=== PATIENT | female | born 1970 | race Hispanic/Latino ===

== ENCOUNTER 2019-09-07 00:53 | Inpatient (IN) | payer OTHER ==
[2019-09-07 02:13] LABS: Bilirubin Negative (Negative); Blood, Urine Negative (Negative); Clarity Clear (Clear); Glucose, Urine (Dipstick) Normal (Negative); Leukocyte 75 Leu/uL (Negative); Nitrite Negative (Negative); Protein, Urine (Dipstick) 30 mg/dL (Neg-Trace); Squamous Epithelial 21-50 HPF (0-3); Urobilinogen Normal mg/dL (Less than 2)
[2019-09-07 02:15] LABS: Bacteria/HPF 1+ HPF (None Seen)
[2019-09-07 02:18] LABS: RBC/HPF 0-3 HPF (0-3)
[2019-09-07] MEDS ORDERED: Acetaminophen 650 MG Suppository PR PRN (03:14)
[2019-09-07] MEDS ORDERED: Acetaminophen 325 MG TAB PO PRN (03:14)
[2019-09-07] MEDS ORDERED: cefTRIAXone\\ROCEPHIN 1 GM in Sodium Chloride 0.9% 100 ML IVPB SCH (03:15)
[2019-09-07 03:26] VITALS: BMI 29.5
[2019-09-07] MEDS: Sodium Chloride 0.9% 1,000 ML IV SCH ×4 (03:38→19:53)
--- NOTE | 2019-09-07 03:52 | PDOC.HHP ---
Hospitalist HPI - History of Present Illness abd pain dysuria History of Present Illness: Case of an 49y/o fem with pmhx of 1 kidney and migrane who comes to hospital due to abd pain. patient refers she was on her usual state on health until last month when she began with similar symptoms for which she was treated with abx which she can no recall. patient states initially symptoms improve but then started to worsen again. patient states she has been having abd pain dysuria intermittent fever nause and vomiting, also refers some sob and coughing Hospitalist ROS - Review of Systems All other systems reviewed; all pertinent +/- noted in HPI/Subj - Medication Medications: Active Medications Generic Name Dose Route Start Last Admin Trade Name Freq PRN Reason Stop Dose Admin Ceftriaxone Sodium 1 gm/ 100 mls @ 200 mls/hr 09/07/19 03:15 09/07/19 03:38 Sodium Chloride IVPB 09/07/19 04:45 100 mls NOW ELEAZAR Administration Sodium Chloride 1,000 mls @ 100 mls/hr 09/07/19 03:30 09/07/19 03:38 Normal Saline 0.9% IV 1,000 mls .Q10H ELEAZAR Administration Hospitalist History - 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 Medical History 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 - Past Surgical History Past Surgical History: reports: no pertinent history - Family History Family History: reports: cancer, cardiac disorder, diabetes mellitus, hypertension - Social History Smoking Status: Never smoker Alcohol: reports: None Drugs: reports: none Living Situation: Other - Exam General Appearance: NAD, awake alert Eye: PERRL, anicteric sclera ENT: normocephalic atraumatic, no oropharyngeal lesions Neck: supple, symmetric, no JVD, no thyromegaly Heart: RRR, no murmur, no gallops, no rubs Respiratory: CTAB, no wheezes, no rales, no ronchi Gastrointestinal: soft, non-tender, non-distended, normal bowel sounds, tender to palpation Extremities: no cyanosis, no edema Skin: normal turgor, no lesions, no rashes Neurological: cranial nerve grossly intact, normal sensation to touch, no weakness, no focal deficits Musculoskeletal: normal tone, normal strength, no muscle wasting Psychiatric: normal affect, normal behavior, A&O x 3 Hospitalist Results - Labs Lab results: Urine Ketones 150 mg/dL (Negative) A 09/07/19 01:58 Urine Blood Negative (Negative) 09/07/19 01:58 Urine Nitrite Negative (Negative) 09/07/19 01:58 Ur Leukocyte Esterase 75 Amy/uL (Negative) A 09/07/19 01:58 Urine RBC 0-3 HPF (0-3) 09/07/19 01:58 Urine WBC 11-20 HPF (0-3) A 09/07/19 01:58 Ur Squamous Epith Cells 21-50 HPF (0-3) A 09/07/19 01:58 Urine Bacteria 1+ HPF (None Seen) A 09/07/19 01:58 - Radiology Interpretation CT scan - abdomen Status: report reviewed by me (hemangioma on liver non obstructing 1.2cm calculos 1 horseshoe kidney) Chest x-ray Status: report reviewed by me (no acute pathology) Hospitalist H&P A/P - Problem (1) Sepsis Code(s): A41.9 - SEPSIS, UNSPECIFIED ORGANISM Status: Acute (2) UTI (urinary tract infection) Status: Acute (3) Horseshoe kidney Code(s): Q63.1 - LOBULATED, FUSED AND HORSESHOE KIDNEY Status: Acute (4) COVID-19 ruled out Code(s): Z03.818 - ENCNTR FOR OBS FOR SUSP EXPSR TO [facility] AGENTS RULED OUT Status: Acute - Plan Plan: sepsis /uti - pt with sepsis, lactate at 3.9 started on sepsis protocol f/u lactate at 0.9. u/a consistent with uti, pts hx of recurrent utis. blood urine cultures were ordered and pt was started on rocephin, f/u cultures and adjust therapy as necessary covid 19 r/o - at the ed pt compliained of some sob and cough, was swap by the ed department. covid precautions were started
[2019-09-07 06:00] LABS: ALT (SGPT) 14 U/L (8-55); AST (SGOT) 17 U/L (5-34); Alkaline Phosphatase 77 U/L (40-110); Anion Gap 15 mmol/L (10-20); BUN (Urea Nitrogen) 6 mg/dL (7.0-18.7); Bilirubin, Total 0.4 mg/dL (0.2-1.2); Calc. Creatinine Clearance 105 mL/min (70-130); Calcium 7.9 mg/dL (7.8-10.44); Carbon Dioxide 15 mmol/L (22-29); Chloride 112 mmol/L (98-107); Estimated GFR-MDRD 80; Globulin 2.4 g/dL (2.4-3.5); Glucose 80 mg/dL (70-105); Magnesium 1.5 mg/dL (1.6-2.6); Protein, Total 5.4 g/dL (6.0-8.3); Sodium 139 mmol/L (136-145)
[2019-09-07 06:09] LABS: Potassium 2.8 mmol/L (3.5-5.1)
[2019-09-07] MEDS ORDERED: Magnesium Sulfate 1 GM, Admixture Fee 1 EACH in Sodium Chloride 0.9% 100 ML IVPB SCH (06:30)
[2019-09-07] MEDS: Ondansetron PF 4 MG/2 ML Vial IVP PRN ×3 (06:41→19:53)
[2019-09-07] MEDS: Potassium Chloride 20 MEQ TAB PO SCH ×2 (06:41→17:44)
[2019-09-07] MEDS: Enoxaparin Sodium 40 MG/0.4 ML SYRINGE SC SCH (08:34)
[2019-09-07 08:40] LABS: Band 3 % (5-11); Eosinophils 1 % (0-10); Lymphocytes 40 % (21-51); Monocytes 8 % (0-10); Neutrophil 48 % (42-75)
[2019-09-07 08:54] LABS: Hemoglobin 13.5 g/dL (12.0-16.0); MDiff Complete? YES; Mean Corpuscular HGB CONC 34.6 g/dL (32.0-36.0); Mean Corpuscular Hemoglobin 32.6 pg (27.0-31.0); Mean Corpuscular Volume 94.2 fL (78.0-98.0); Mean Platelet Volume 9.9 fL (7.4-10.4); Platelet Count 161 thou/uL (130-400); RBC Distribution Width 12.7 % (11.5-14.5); Red Blood Cell (RBC) Count 4.14 mill/uL (4.20-5.40); White Blood Cell (WBC) Count 6.9 thou/uL (4.8-10.8)
[2019-09-07] MEDS: HYDROcodone/Acetaminophen 5/325 mg Tablet PO PRN ×2 (11:45→15:53)
[2019-09-07 14:11] LABS: Anion Gap 16 mmol/L (10-20); BUN (Urea Nitrogen) 5 mg/dL (7.0-18.7); Calc. Creatinine Clearance 121 mL/min (70-130); Calcium 7.8 mg/dL (7.8-10.44); Carbon Dioxide 12 mmol/L (22-29); Chloride 116 mmol/L (98-107); Estimated GFR-MDRD Greater than 90; Glucose 80 mg/dL (70-105); Magnesium 1.9 mg/dL (1.6-2.6); Potassium 3.5 mmol/L (3.5-5.1); Sodium 140 mmol/L (136-145)
--- NOTE | 2019-09-07 15:31 | PDOC.HOSPP ---
- Subjective Encounter Date: 09/07/19 Encounter Time: 01:30 Subjective: The patient states her abdominal pain is about the same. She states she has been having this for about a month as long as dysuria for a month. She says she completed antibiotics for a UTI in [facility] and states that her repeat urine culture was clear at the [facility]. She reports that she has been vomiting dark red blood for the past month. Initially it was a small amount but yesterday it was a coffee cup full. She also reports having black stools . She does not do alcohol or do any drugs She reports having heartburn from all the vomiting, doesn't usually have heartburn. She does not take NSAIDS at home because was told not to She states that she is still feeling dizzy and lightheaded - Objective Vital Signs & Weight: Vital Signs (12 hours) Temp Pulse Resp BP Pulse Ox 09/07/19 11:40 97.7 F 72 16 124/78 99 09/07/19 08:00 98 09/07/19 07:55 97.8 F 64 14 135/72 98 09/07/19 04:00 97 Weight Weight 166 lb 8.948 oz Result Diagrams: 09/07/19 05:29 09/07/19 13:44 Hospitalist ROS - Review of Systems Constitutional: denies: fever, chills - Medication Medications: Active Medications Generic Name Dose Route Start Last Admin Trade Name Freq PRN Reason Stop Dose Admin Hydrocodone Bitart/Acetaminophen 1 tab 09/07/19 03:14 09/07/19 11:45 [place] 5/325 PO 1 tab Q4H PRN Administration Moderate Pain (4-6) Enoxaparin Sodium 40 mg 09/07/19 09:00 09/07/19 08:34 Lovenox SC Not Given 0900 ELEAZAR Sodium Chloride 1,000 mls @ 100 mls/hr 09/07/19 03:30 09/07/19 12:28 Normal Saline 0.9% IV Not Given .Q10H ELEAZAR Ondansetron HCl 4 mg 09/07/19 03:14 09/07/19 14:31 Zofran IVP 4 mg Q6H PRN Administration Nausea/Vomiting Potassium Chloride 40 meq 09/07/19 07:00 09/07/19 06:41 K-Dur PO 09/07/19 20:00 40 meq 0700,1800 ELEAZAR Administration Sodium Chloride 10 ml 09/07/19 09:00 09/07/19 07:39 Flush - Normal Saline IVF 10 ml Q12HR ELEAZAR Administration - Exam General Appearance: NAD, awake alert Eye: PERRL, anicteric sclera ENT: normocephalic atraumatic, no oropharyngeal lesions Neck: supple, no JVD Heart: RRR, no murmur, no gallops, no rubs Respiratory: CTAB, no wheezes, no rales, no ronchi Gastrointestinal: soft, non-tender, non-distended, normal bowel sounds Gastrointestinal - other findings: bilateral CVA tenderness Extremities: no cyanosis, no clubbing, no edema Skin: normal turgor, no lesions, no rashes Neurological: cranial nerve grossly intact, normal sensation to touch, no focal deficits, no new deficit Musculoskeletal: normal tone, normal strength Psychiatric: A&O x 3 Hosp A/P - Plan This is 49 year old male who presented with abdominal pain, vomiting, dysuria, and vomiting blood Abdominal pain Coffee ground emesis? - Hb was 13.5 on admission - will place on protonix drip and repeat CBC. Check FOBT. If positive and CBC downtrending will consider GI consult for endoscopy in the am Lactic acidosis - was 3.9 on admission. Improved to 0.9 with IV fluids Hypokalemia - potassium improved from 2.8 to 3.5 Hypomagnesemia - improved, increased from 1.5 to 1.9 Code status: full code
[2019-09-07] MEDS: Pantoprazole 80 MG in Sodium Chloride 0.9% 100 ML IVPB SCH (15:53)
[2019-09-07 17:21] LABS: Hemoglobin 13.5 g/dL (12.0-16.0); Mean Corpuscular HGB CONC 35.2 g/dL (32.0-36.0); Mean Corpuscular Hemoglobin 33.1 pg (27.0-31.0); Mean Corpuscular Volume 93.9 fL (78.0-98.0); Mean Platelet Volume 9.4 fL (7.4-10.4); Platelet Count 151 thou/uL (130-400); RBC Distribution Width 12.7 % (11.5-14.5); Red Blood Cell (RBC) Count 4.09 mill/uL (4.20-5.40); White Blood Cell (WBC) Count 5.7 thou/uL (4.8-10.8)
[2019-09-08] MEDS: Pantoprazole 80 MG in Sodium Chloride 0.9% 100 ML IVPB SCH ×2 (01:25→08:46)
[2019-09-08] MEDS: HYDROcodone/Acetaminophen 5/325 mg Tablet PO PRN ×3 (01:39→22:44)
[2019-09-08] MEDS: Enoxaparin Sodium 40 MG/0.4 ML SYRINGE SC SCH (08:48)
[2019-09-08] MEDS: Sodium Chloride 0.9% 1,000 ML IV SCH ×2 (08:49→14:45)
[2019-09-08] MEDS: Ondansetron ODT 4 MG TAB PO PRN ×2 (10:45→17:16)
[2019-09-08 10:46] LABS: Hemoglobin 14.7 g/dL (12.0-16.0); Mean Corpuscular HGB CONC 32.2 g/dL (32.0-36.0); Mean Corpuscular Hemoglobin 30.8 pg (27.0-31.0); Mean Corpuscular Volume 95.7 fL (78.0-98.0); Mean Platelet Volume 9.6 fL (7.4-10.4); Platelet Count 161 thou/uL (130-400); RBC Distribution Width 13.3 % (11.5-14.5); Red Blood Cell (RBC) Count 4.78 mill/uL (4.20-5.40); White Blood Cell (WBC) Count 4.9 thou/uL (4.8-10.8)
[2019-09-08 11:06] LABS: Anion Gap 11 mmol/L (10-20); BUN (Urea Nitrogen) 4 mg/dL (7.0-18.7); Calc. Creatinine Clearance 113 mL/min (70-130); Calcium 8.1 mg/dL (7.8-10.44); Carbon Dioxide 16 mmol/L (22-29); Chloride 117 mmol/L (98-107); Estimated GFR-MDRD 86; Glucose 97 mg/dL (70-105); Potassium 3.4 mmol/L (3.5-5.1); Sodium 141 mmol/L (136-145)
[2019-09-08] MEDS ORDERED: Potassium Chloride 20 MEQ TAB PO SCH (11:45)
--- NOTE | 2019-09-08 15:52 | PDOC.HOSPP ---
- Subjective Encounter Date: 09/08/19 Encounter Time: 15:30 Subjective: Patient states she is barely eating solids and just picking at food and eating small pieces The patient continues to report persistent abd pain on both sides. She also reports some nausea and vomited a few times this morning, but no blood. Per guard supervisor, they stated she self induces vomiting at the shelter a few times Patient does not do drugs or smoke marijuana - Objective Vital Signs & Weight: Vital Signs (12 hours) Temp Pulse Resp BP BP Pulse Ox 09/08/19 10:52 97.6 F 92 18 107/74 96 09/08/19 09:00 97.8 F 74 18 107/72 97 09/08/19 04:26 98 F 76 18 122/75 98 Weight Admit Weight 166 lb 8.944 oz Weight 166 lb 8.948 oz I&O: 09/07/19 09/08/19 09/09/19 06:59 06:59 06:59 Intake Total 1540 Output Total 20 Balance 1520 Result Diagrams: 09/08/19 10:22 09/08/19 10:22 Hospitalist ROS - Review of Systems Constitutional: denies: fever, chills - Medication Medications: Active Medications Generic Name Dose Route Start Last Admin Trade Name Freq PRN Reason Stop Dose Admin Hydrocodone Bitart/Acetaminophen 1 tab 09/07/19 03:14 09/07/19 15:53 [place] 5/325 PO 1 tab Q4H PRN Administration Moderate Pain (4-6) Hydrocodone Bitart/Acetaminophen 2 tab 09/07/19 03:14 09/08/19 01:39 [place] 5/325 PO 2 tab Q4H PRN Administration Severe Pain (7-10) Enoxaparin Sodium 40 mg 09/07/19 09:00 09/08/19 08:48 Lovenox SC 40 mg 0900 ELEAZAR Administration Sodium Chloride 1,000 mls @ 100 mls/hr 09/07/19 03:30 09/08/19 14:45 Normal Saline 0.9% IV 1,000 mls .Q10H ELEAZAR Administration Pantoprazole Sodium 80 mg/ 100 mls @ 10 mls/hr 09/07/19 15:30 09/08/19 08:46 Sodium Chloride IVPB 100 mls INF ELEAZAR Administration Ondansetron HCl 4 mg 09/07/19 03:14 09/08/19 10:45 Zofran Odt PO 4 mg Q6H PRN Administration Nausea/Vomiting Ondansetron HCl 4 mg 09/07/19 03:14 09/07/19 19:53 Zofran IVP 4 mg Q6H PRN Administration Nausea/Vomiting Sodium Chloride 10 ml 09/07/19 09:00 09/08/19 08:48 Flush - Normal Saline IVF 10 ml Q12HR ELEAZAR Administration - Exam General Appearance: NAD, awake alert Eye: PERRL, anicteric sclera ENT: normocephalic atraumatic, no oropharyngeal lesions Neck: no JVD Heart: RRR, no murmur, no gallops, no rubs Respiratory: CTAB, no wheezes, no rales, no ronchi Gastrointestinal: soft Gastrointestinal - other findings: RUQ and LUQ tenderness. Hosp A/P - Plan This is 49 year old male who presented with abdominal pain, vomiting, dysuria, and vomiting blood Abdominal pain Persistent vomiting - Hb was 13.5 on admission. Doubt actual GI bleed due to normal CBC. Switch back to IV protonix BID - GI consulted for persistent abd pain, plan for EGD tomorrow Hypokalemia - potassium 3.4, replace with 40 meq today Hypomagnesemia - improved, increased from 1.5 to 1.9 Lactic acidosis - was 3.9 on admission. Improved to 0.9 with IV fluids Code status: full code
[2019-09-08] MEDS ORDERED: Polyethylene Glycol 3350 17 GM Packet PO PRN (15:53)
[2019-09-08] MEDS: Pantoprazole 40 MG VIAL IVP SCH (20:56)
--- NOTE | 2019-09-08 22:04 | CON ---
DATE OF CONSULTATION: 09/08/2019 CHIEF COMPLAINT: Abdominal pain, nausea and vomiting. HISTORY OF PRESENT ILLNESS: Ms. Castro is a 49-year-old woman, who was transferred from the [facility] to the emergency room with abdominal pain and nausea and vomiting. She states that she has had vague aching abdominal pain for the last month that is sometimes in the right upper quadrant, sometimes more in the right lower quadrant or the left lower or left upper quadrant. It tends to be more often located toward the right side of the abdomen. She has had diarrhea a couple weeks ago and then has taken very little oral intake for the last couple of weeks due to ongoing nausea. She has had no bowel movements for the last couple of weeks except for yesterday. She had a watery brown stool. She has had no black stools or red stools. She vomits frequently and states that she vomited multiple times last night, initially with streaks of red blood and yellow emesis and then some red blood with clots after that. She had a CT scan of the abdomen and pelvis that showed a horseshoe kidney and nonobstructing renal stone and hemangioma in the liver that was otherwise unremarkable. PAST MEDICAL HISTORY: Migraine headaches, horseshoe kidney, hypertension. PAST SURGICAL HISTORY: Negative. FAMILY HISTORY: Negative for GI malignancy. SOCIAL HISTORY: No alcohol, tobacco, or drugs. She is currently incarcerated. ALLERGIES: PENICILLIN. OUTPATIENT MEDICATIONS: None. INPATIENT MEDICATIONS: Enoxaparin and pantoprazole. REVIEW OF SYSTEMS: Negative x10 systems reviewed except as stated in the history of present illness. PHYSICAL EXAMINATION: VITAL SIGNS: Temperature 97.6, pulse 92, and blood pressure 107/74. GENERAL: She is in no acute distress. Alert and oriented x3. HEENT: Eyes have no scleral icterus. Oropharynx is clear without lesions. No cervical or supraclavicular lymphadenopathy. LUNGS: Clear to auscultation bilaterally. HEART: Regular rate and rhythm without murmur. ABDOMEN: Soft, nontender, and nondistended. Bowel sounds are present. EXTREMITIES: No lower extremity edema. RECTAL: Reveals brown stool in the rectal vault. LABORATORY DATA: White blood cell count 4.9, hemoglobin 14.7, platelets 161, creatinine 0.72, bilirubin 0.4, AST 17, ALT 14, alkaline phosphatase 77, albumin 3.0, and lipase 20. IMPRESSION: 1. Hematemesis. This is most consistent by description with a Mehnaz-Hardin tear. 2. Nausea and vomiting and generalized right-sided abdominal pain for the last month. CT scan was negative. We will evaluate further with upper endoscopy to rule out peptic ulcer disease or neoplastic process. If endoscopy is negative, then given the right-sided pain and reported weight loss of 11 pounds and inability to advance her diet over the last month, consideration can be given to follow with colonoscopy. 3. It is noted that her COVID-19 PCR is negative on 09/06/2019. Job ID: [id number]
[2019-09-08] MEDS: Ondansetron PF 4 MG/2 ML Vial IVP PRN (22:44)
[2019-09-09] MEDS: Ondansetron PF 4 MG/2 ML Vial IVP PRN (06:11)
[2019-09-09 06:59] LABS: Hemoglobin 13.3 g/dL (12.0-16.0); Mean Corpuscular HGB CONC 32.9 g/dL (32.0-36.0); Mean Corpuscular Hemoglobin 31.2 pg (27.0-31.0); Mean Corpuscular Volume 94.7 fL (78.0-98.0); Mean Platelet Volume 9.1 fL (7.4-10.4); Platelet Count 169 thou/uL (130-400); Red Blood Cell (RBC) Count 4.28 mill/uL (4.20-5.40); White Blood Cell (WBC) Count 4.5 thou/uL (4.8-10.8)
[2019-09-09 07:13] LABS: Anion Gap 11 mmol/L (10-20); BUN (Urea Nitrogen) Less than 4 mg/dL (7.0-18.7); Calc. Creatinine Clearance 108 mL/min (70-130); Calcium 8.2 mg/dL (7.8-10.44); Carbon Dioxide 20 mmol/L (22-29); Chloride 112 mmol/L (98-107); Estimated GFR-MDRD 82; Glucose 83 mg/dL (70-105); Potassium 3.3 mmol/L (3.5-5.1); Sodium 140 mmol/L (136-145)
[2019-09-09] MEDS: Pantoprazole 40 MG VIAL IVP SCH ×2 (09:26→20:37)
[2019-09-09] MEDS ORDERED: PROPOFOL 200 MG/20 ML VIAL ONE (11:43)
--- NOTE | 2019-09-09 13:28 | OP ---
DATE OF PROCEDURE: 09/09/2019 ASSISTANCE SURGEON: None. PROCEDURE PERFORMED: Esophagogastroduodenoscopy with biopsies. INDICATIONS FOR PROCEDURE: 1. Hematemesis. 2. Nausea and vomiting. 3. Generalized abdominal pain. MEDICATIONS: See Anesthesia record. FINDINGS: After discussion of the risks, benefits, and alternatives of the procedure, informed consent was obtained and witnessed. Pre-endoscopic cardiopulmonary examination was satisfactory. Time-out was performed before sedation was achieved. Sedation was achieved with Anesthesia assistance in the endoscopy unit. A Pentax adult upper endoscope was placed into the oropharynx and passed through the cricopharyngeus under direct visualization. The proximal and mid esophageal mucosa appeared normal. In the distal esophagus just above the GE junction, there was LA grade A reflux esophagitis. The endoscope was advanced beyond the GE junction. There was no evidence of any Mehnaz-Hardin tear. The endoscope was advanced into the stomach. Forward and retroflexed views of the entire gastric mucosa were obtained. There was no evidence of any old blood or active bleeding in the stomach. The mucosa of the gastric fundus and proximal body appeared normal. In the gastric antrum, there was moderate erosive gastritis characterized by erythema, friability, and edema with several small nonbleeding erosions. Biopsies were obtained from the gastric antrum and body to rule out H. pylori infection. The endoscope was advanced through the pylorus into the first and second portions of the duodenum, which appeared normal. The upper endoscope was completely withdrawn, and the patient was allowed to recover. The patient tolerated the procedure well. There were no immediate postprocedure complications. IMPRESSION: 1. Erosive gastritis, in the gastric antrum. Biopsied to rule out Helicobacter pylori. 2. Mild distal esophagitis. 3. No old blood or active bleeding. 4. Otherwise, normal esophagogastroduodenoscopy. RECOMMENDATIONS: 1. Advance diet. 2. Follow up results of gastric biopsies. If H. pylori is present, treat with triple therapy and confirm eradication. 3. Pantoprazole 40 mg by mouth twice daily for 1 month. GI will sign off. Please call back anytime with questions or concerns. Job ID: [id number]
[2019-09-09] MEDS: Ondansetron ODT 4 MG TAB PO PRN ×2 (14:56→20:36)
[2019-09-09] MEDS ORDERED: Potassium Chloride 20 MEQ TAB PO SCH (16:15)
--- NOTE | 2019-09-09 18:59 | PDOC.HOSPP ---
- Subjective Encounter Date: 09/09/19 Encounter Time: 18:57 Subjective: Pavel had an EGD today which showed gastritis. Patient reports persistent abdominal pain and some burning with urination - Objective Vital Signs & Weight: Vital Signs (12 hours) Temp Pulse Resp BP Pulse Ox 09/09/19 16:09 98.1 F 90 16 92/68 98 09/09/19 12:00 98.1 F 79 18 111/80 97 09/09/19 08:10 99 09/09/19 07:17 98.4 F 76 16 94/66 99 Weight Admit Weight 166 lb 8.944 oz Weight 166 lb 8.948 oz I&O: 09/08/19 09/09/19 09/10/19 06:59 06:59 06:59 Intake Total 1540 2009 240 Output Total 20 Balance 1520 2009 240 Result Diagrams: 09/09/19 06:41 09/09/19 06:41 Hospitalist ROS - Review of Systems Constitutional: denies: fever, chills Respiratory: denies: cough, dry, shortness of breath - Medication Medications: Active Medications Generic Name Dose Route Start Last Admin Trade Name Freq PRN Reason Stop Dose Admin Hydrocodone Bitart/Acetaminophen 1 tab 09/07/19 03:14 09/08/19 17:16 [place] 5/325 PO 1 tab Q4H PRN Administration Moderate Pain (4-6) Hydrocodone Bitart/Acetaminophen 2 tab 09/07/19 03:14 09/08/19 22:44 [place] 5/325 PO 2 tab Q4H PRN Administration Severe Pain (7-10) Levofloxacin 750 mg/ Device 150 mls @ 100 mls/hr 09/09/19 17:00 09/09/19 16: 27 IVPB 150 mls Q24HR ELEAZAR Administration Ondansetron HCl 4 mg 09/07/19 03:14 09/09/19 14:56 Zofran Odt PO 4 mg Q6H PRN Administration Nausea/Vomiting Ondansetron HCl 4 mg 09/07/19 03:14 09/09/19 06:11 Zofran IVP 4 mg Q6H PRN Administration Nausea/Vomiting Pantoprazole Sodium 40 mg 09/08/19 21:00 09/09/19 09:26 Protonix IVP 40 mg Q12HR ELEAZAR Administration Sodium Chloride 10 ml 09/07/19 09:00 09/09/19 09:27 Flush - Normal Saline IVF 10 ml Q12HR ELEAZAR Administration - Exam General Appearance: NAD, awake alert Eye: PERRL, anicteric sclera ENT: normocephalic atraumatic, no oropharyngeal lesions Neck: no JVD Heart: RRR, no murmur, no gallops, no rubs Respiratory: CTAB, no wheezes, no rales, no ronchi Gastrointestinal: soft, non-distended, normal bowel sounds Gastrointestinal - other findings: RLQ tenderness, LLQ tenderness , LUQ tenderness Extremities: no cyanosis, no clubbing, no edema Skin: normal turgor, no lesions, no rashes Neurological: cranial nerve grossly intact, normal sensation to touch, no focal deficits, no new deficit Musculoskeletal: normal tone, normal strength, no muscle wasting Psychiatric: normal affect, normal behavior, A&O x 3 Hosp A/P - Plan EGD: erosive gastritis in the gastric antrum. Mild distal esophagitis. This is 49 year old male who presented with abdominal pain, vomiting, dysuria, and vomiting blood. Found to have erosive gastritis Erosive gastritis and esophagitis - noted on EGD today. Continue IV protonix, switch to oral tomorrow - biopsies pending to rule out H pylori Enterococcal UTI - patient reports dysuria. Last urine culture 2017 sensitive to levaquin. Will give one dose of IV levaquin - pending sensitivities Hypokalemia - potassium 3.3, replace with 40 meq today Hypomagnesemia- resolved Lactic acidosis - was 3.9 on admission. Improved to 0.9 with IV fluids Code status: full code
[2019-09-09] MEDS: HYDROcodone/Acetaminophen 5/325 mg Tablet PO PRN (21:51)
[2019-09-10] MEDS ORDERED: traMADol HCl 50 MG TAB PO SCH (00:30)
[2019-09-10] MEDS: Pantoprazole 40 MG VIAL IVP SCH (08:38)
[2019-09-10] MEDS: Ondansetron ODT 4 MG TAB PO PRN ×2 (08:52→17:05)
[2019-09-10] MEDS: HYDROcodone/Acetaminophen 5/325 mg Tablet PO PRN (08:53)
[2019-09-10] MEDS ORDERED: Potassium Chloride 20 MEQ TAB PO SCH (10:15)
[2019-09-10 14:17] LABS: Potassium 3.5 mmol/L (3.5-5.1)
[2019-09-10] MEDS ORDERED: Sucralfate 1 GM TAB PO SCH (17:00)
--- NOTE | 2019-09-10 17:32 | PQF ---
CLINICAL DOCUMENTATION IMPROVEMENT CLARIFICATION FORM: ICD-10 Updated PLEASE DO AN ADDENDUM TO THE PROGRESS NOTE WITH ANY DOCUMENTATION UPDATES OR ADDITIONS AND CARRY THROUGH TO DC SUMMARY. THANK YOU. DATE: 09/10/2019 ATTN: Dr. Montero Please exercise your independent, professional judgment in responding to the clarification form. Clinical indicators are provided on the bottom of this form for your review Please check appropriate box(s) to clarify if the following diagnosis has been ruled in or ruled out: SEPSIS [ ] Ruled in diagnosis [ ] Continue to treat [ ] Resolved [ X ] Ruled out diagnosis [ ] Improving [ ] Cannot rule out diagnosis [ ] Other diagnosis [ ] Unable to determine In addition, please specify: Present on Admission (POA): [ ] Yes [X ] No [ ] Unable to determine For continuity of documentation, please document condition throughout progress notes and discharge summary. Thank You. CLINICAL INDICATORS - SIGNS / SYMPTOMS / LABS / RESULTS AND LOCATION IN MR ER Record 09/06: BP 110/56, Pulse 94, Resp. 20 DX: sepsis covid r/o, uti H&P 09/06 ([place]) Sepsis / uti - pt with sepsis, lactate at 3.9 started on sepsis protocol f/u lactate at 0.9. 09/08 ([place]) Erosive gastritis and esophagitis Enterococcal UTI Lactic acidosis RISKS: H&P 09/06: PMHX 1 kidney. Hx of recurrent UTIs. TREATMENT: ER Record 09/06: Sodium chloride 0.9% 1L IV Order 09/08-09/09: IV Levaquin 750 mg q 24 hr Thank you, Gerda (This form is maintained as a part of the permanent medical record) 2014 [employer] All Rights Reserved Gerda Garsia RN, BSN [email or web address]
[2019-09-10 18:28] VITALS: BP 112/79; TEMP 98.2
--- NOTE | 2019-09-10 21:28 | DIS ---
DATE OF ADMISSION: 09/07/2019 DATE OF DISCHARGE: 09/10/2019 DISCHARGE DIAGNOSES: 1. Enterococcal urinary tract infection 2. Lactic acidosis, 3. Hypokalemia 4. Hypomagnesemia 5. Erosive gastritis 6. Erosive esophagitis. 7. Questionable hematemesis CONSULTATIONS: GI with Dr. Arley Kessler. PROCEDURES: Upper endoscopy. BRIEF HISTORY OF PRESENT ILLNESS: This is a 49-year-old female with past medical history of one horseshoe kidney and migraine, who presented to the hospital with abdominal pain. The patient reported that she was recently treated for a U[place] in her [place] [facility] and a repeat urine culture at the [place] [facility] was normal. However, she continue to report persistent abdominal pain, dysuria, nausea and vomiting. When patient arrived to the emergency room, she was noted to have a potassium of 2.8 and a lactic acid of 3.9. Her UA showed 11 to 20 white blood cells. The patient was given ceftriaxone and admitted for further workup. HOSPITAL COURSE: Enterococcal UTI: The patient was given 1 dose of IV ceftriaxone on admission. The patient's urine culture also came back positive for enterococcal UTI. She was given IV Levaquin on the . She was discharged with 7 days of Levaquin at the facility. Of note, patient did have some issues with urinary retention. She did require intermittent straight catheterization twice for postvoid residuals of 400. She was given a prescription for a straight catheter that she can use every 6 hours as needed for bladder retention. Epigastric pain: She continued to report persistent abdominal pain and epigastric pain with heartburn. She did report that she had vomited some blood, however CBC showed no anemia. She was started on a Protonix drip. GI was consulted and she underwent an EGD, which showed erosive gastritis and esophagitis. She did have a biopsy sent for H. pylori, which came back negative. She was discharged with Protonix and sucralfate as needed for her gastritis and esophagitis. Hypokalemia: The patient did have a potassium of 2.8 on admission which improved to 3.5 with potassium supplementation. Nausea/vomiting: She was given a prescription for Zofran that she could use for nausea and vomiting on discharge if she continues to have this. Of note, however, the watchguard states the patient often self induces her vomiting, so the patient may be malingering to some extent. Lactic acidosis: The patient had a lactic acid of 3.9, which improved to 0.9 with IV fluids. Hypomagnesemia: The patient did have a low magnesium level of 1.5, which improved to 1.9 with supplementation. DISCHARGE PHYSICAL EXAMINATION: VITAL SIGNS: Temperature 98.2, heart rate 84, respiratory rate 18, O2 saturation 99% on room air, blood pressure 112/79. GENERAL: The patient is overweight. She is in no acute distress. CVS: Regular rate and rhythm with no murmurs, rubs, or gallops. LUNGS: Clear to auscultation bilaterally. ABDOMEN: Positive bowel sounds, soft, nontender, nondistended. EXTREMITIES: No edema. LABORATORY DATA: CBC from 09/08 :white count of 4.5, hemoglobin 13.3, hematocrit 40.5, platelet count of 169. BMP from 09/08; sodium was 140, potassium 2.3, chloride 112, bicarb 20. Potassium from 09/09; 3.5. Magnesium level from 09/06; 1.9. LFTs from 09/06; AST 17, ALT 14, ALP 77. UA from 09/06: shows 150 ketones, 75 leukocyte esterase, 11 to 20 white blood cells. Urine culture: shows 100,000 E. faecalis. DISCHARGE CONDITION: Stable for discharge to the [place] [facility]. ACTIVITY: As tolerated. DIET: Regular diet. DISCHARGE MEDICATIONS: New prescriptions: 1. Levaquin 750 mg p.o. daily. 2. Protonix 40 mg p.o. b.i.d. 3. Zofran 4 mg p.o. q.8 hours p.r.n. 4. Potassium 20 daily prn for vomiting 5. Sucralfate 1 g p.o. q.i.d. p.r.n. for heartburn. DISCHARGE INSTRUCTIONS: The patient should take Levaquin for 7 days. She should take Protonix for at least a month. She should avoid Aleve and Motrin. She should follow up with her PCP in a week. Job ID: [id number] [id number]
--- NOTE | 2019-09-11 08:51 | PQF ---
EULALIO QUEZADA JUICE, JANINE [id number] CLINICAL DOCUMENTATION CLARIFICATION FORM: POST DISCHARGE Addendum to original discharge summary date: ____ Late entry note date: __ DATE:09/11/2019 ATTN: Janien Carrera Please exercise your independent, professional judgment in responding to the clarification form. Clinical indicators are provided on the bottom of this form for your review In your clinical opinion based on clinical findings below, can you please identify the etiology of Hematemesis if due to: Please check appropriate box(s): [ X ] Gastritis [ ] Reflux Esophagitis [ ] Other diagnosis [ ] Unable to determine For continuity of documentation, please document condition throughout progress notes and discharge summary. Thank You. CLINICAL INDICATORS - SIGNS / SYMPTOMS / LABS Vital signs 09/06 BP 110/56, Pulse 94, Resp 20, Temp 98.4 H&P p1 09/06 'comes to hospital due to abd pain Hospitalist PN p1 09/06 She reports that she has been vomiting dark red blood for past month Hospitalist PN p1 09/06 She reports having heartburn from all the vomiting, doesn't usually have heartburn Operative report p1 09/08 hematemesis, nausea and vomiting, generalized abdominal pain Operative report p1 09/08 Erosive gastritis, Reflux esophagitis RISK FACTORS H&P p3 UTI H&P p3 [place] kidney Hospitalist PN p4 09/06 Lactic acidosis Hospitalist PN p4 09/06 Hypokalemia Hospitalist PN p4 09/06 hypomagnesia TREATMENTS: JUL 02 IV Zofran 4mg MAR 09/06 IV Pantropazole 80 mg MAR 09/06 IV NS 1L JUL 02 IV Protonix 40 mg EGD with biopsy 09/08 (This form is maintained as a part of the permanent medical record) 2014 [employer]. All Rights Reserved [email or web address]
== END 2019-09-10 18:22 | DRG 689 ==
LOC: ERS 00:53 → T4-A 02:03 → EEVIPCON 02:03 → T4-A 02:44
PROVIDERS: ADMIT Internal Medicine; ATTEND Internal Medicine
PROC: 8E0ZXY6 Isolation (ICD-10-PCS; 2019-09-07)
PROC: 0DB68ZX Excision of Stomach, Via Natural or Artificial Opening Endoscopic, Diagnostic (ICD-10-PCS; principal; 2019-09-09)
PROC: 0DB78ZX Excision of Stomach, Pylorus, Via Natural or Artificial Opening Endoscopic, Diagnostic (ICD-10-PCS; 2019-09-09)
DX: N39.0 Urinary tract infection, site not specified (principal); K29.71 Gastritis, unspecified, with bleeding; E87.2 Acidosis; K21.0 Gastro-esophageal reflux disease with esophagitis; Z20.828 Contact with and (suspected) exposure to other viral communicable diseases; B95.2 Enterococcus as the cause of diseases classified elsewhere; E87.6 Hypokalemia; E83.42 Hypomagnesemia; G43.909 Migraine, unspecified, not intractable, without status migrainosus; I10 Essential (primary) hypertension; Q63.1 Lobulated, fused and horseshoe kidney
CPT/HCPCS: 36415; 71045; 80048; 80053; 81001; 83735; 84132; 85007; 85027; 87077; 87086; 87186; 88305; 88312; 96360; C9113; J0696; J1650; J1956; J2405; J2704; J3475; J3490; Q0162